=== PATIENT | male | born 1990 ===

== ENCOUNTER 2018-08-16 12:24 | Emergency (ER) | payer SELFPAY ==
[~2018-08-16] VITALS: Ht 182.9 cm; Wt 78.5 kg
[2018-08-16 13:17] VITALS: BP 127/74; Ht 182.9 cm; Wt 78.5 kg
== END 2018-08-16 15:07 | disposition home or self-care (01) ==
LOC: ED 12:24
DX: Z04.1 Encounter for examination and observation following transport accident (principal); V49.49XA Driver injured in collision with other motor vehicles in traffic accident, initial encounter; Y93.I9 Activity, other involving external motion; Y92.413 State road as the place of occurrence of the external cause; Y99.8 Other external cause status